=== PATIENT | male | born 1980 | race Caucasian/White ===

== ENCOUNTER 2024-01-05 22:20 | Emergency (ER) | payer SELFPAY ==
[~2024-01-05] VITALS: Ht 170.2 cm; Wt 73.0 kg
[2024-01-05 22:24] VITALS: BP 138/70; PULSE 87; RESP 15; TEMP 98.4; O2SAT 97
== END 2024-01-06 05:22 | disposition home or self-care (01) ==
LOC: EDBD 22:20 → ER 22:20
DX: R41.82 Altered mental status, unspecified (principal); F19.90 Other psychoactive substance use, unspecified, uncomplicated
CPT/HCPCS: 99283; Z7610 ×2